=== PATIENT | male | born 1980 | race American Indian/Alaskan Native ===

== ENCOUNTER 2016-07-05 22:45 | Emergency (ER) | payer SELFPAY ==
[~2016-07-05 22:45] MED LIST: D50W (25GM) IV ONE
--- NOTE | 2016-07-05 23:27 | Emergency Department Report ---
ED General Adult HPI - General Chief complaint: Hypoglycemia Stated complaint: POSS HYPOGLYCEMIA Time Seen by Provider: 07/05/16 23:20 Source: family Mode of arrival: Wheelchair Limitations: No Limitations - History of Present Illness Initial comments: This is a 35-year-old male. He is previously known to me. He has a past medical history of diabetes. Takes novolin r Patient is brought to the hospital by family for hypoglycemia. Patient was found to have initial fingerstick of 38. He was given IV dextrose, and he was fed. His hypoglycemia has resolved. He has no headache, neck pain, chest pain, abdominal pain or shortness of breath. There is no nausea, vomiting or diarrhea. He denies irritative and obstructive urinary symptoms. He reports that he ate twice yesterday; he once in the morning, and once in the afternoon. He reports that he gave himself 20 units of of Novolin R in the morning, 15 units of Novolin R at 12 PM, and 10 units of Novolin R at 6 PM. The patient has no complaints at this time. -: Gradual Severity scale (0 -10): 0 Consistency: now resolved Improves with: medication, other (glucose) Associated Symptoms: denies other symptoms. denies: confusion, chest pain, cough, diaphoresis, fever/chills, headaches, loss of appetite, malaise, nausea/ vomiting, rash, seizure, shortness of breath, syncope, weakness - Related Data Previous Rx's Medication Instructions Recorded Last Taken Type Insulin NPH, Human [NovoLIN N] 10 unit SQ QPM #1 pen 07/06/16 Unknown Rx Insulin NPH, Human [NovoLIN N] 25 unit SQ QAM #1 pen 07/06/16 Unknown Rx Insulin Regular, Human [HumuLIN R] 10 unit SQ DAILY #1 pen 07/06/16 Unknown Rx Insulin Regular, Human [HumuLIN R] 20 unit SQ QAM #1 pen 07/06/16 Unknown Rx Allergies Allergy/AdvReac Type Severity Reaction Status Date / Time paroxetine HCl [From Paxil] Allergy Swelling Verified 05/12/14 13:41 ED Review of Systems ROS: Stated complaint: POSS HYPOGLYCEMIA Other details as noted in HPI Constitutional: denies: fever Eyes: denies: vision change ENT: denies: epistaxis Respiratory: denies: cough Cardiovascular: denies: chest pain Gastrointestinal: denies: abdominal pain Genitourinary: denies: urgency, dysuria Musculoskeletal: denies: back pain Skin: denies: lesions Neurological: weakness Psychiatric: as per HPI ED Past Medical Hx - Past Medical History Previous Medical History?: Yes Hx Diabetes: Yes Additional medical history: heart murmur - Surgical History Past Surgical History?: No - Social History Smoking Status: Unknown if ever smoked - Medications Home Medications: Home Medications Medication Instructions Recorded Confirmed Last Taken Type Insulin NPH, Human [NovoLIN N] 10 unit SQ QPM #1 pen 07/06/16 Unknown Rx Insulin NPH, Human [NovoLIN N] 25 unit SQ QAM #1 pen 07/06/16 Unknown Rx Insulin Regular, Human [HumuLIN R] 10 unit SQ DAILY #1 pen 07/06/16 Unknown Rx Insulin Regular, Human [HumuLIN R] 20 unit SQ QAM #1 pen 07/06/16 Unknown Rx ED Physical Exam - General Limitations: No Limitations General appearance: alert, in no apparent distress - Head Head exam: Present: atraumatic, normocephalic - Eye Eye exam: Present: normal appearance, EOMI. Absent: nystagmus - ENT ENT exam: Present: normal exam, normal orophraynx, mucous membranes moist, normal external ear exam - Neck Neck exam: Present: normal inspection, full ROM. Absent: tenderness, meningismus - Respiratory Respiratory exam: Present: normal lung sounds bilaterally. Absent: respiratory distress, wheezes, rales, rhonchi, stridor, decreased breath sounds - Cardiovascular Cardiovascular Exam: Present: regular rate, normal rhythm, normal heart sounds. Absent: bradycardia, tachycardia, irregular rhythm, systolic murmur, diastolic murmur, rubs, gallop - GI/Abdominal GI/Abdominal exam: Present: soft, normal bowel sounds. Absent: distended, tenderness, guarding, rebound, rigid, pulsatile mass - Rectal Rectal exam: Present: deferred - Extremities Exam Extremities exam: Present: normal inspection, full ROM, normal capillary refill. Absent: tenderness, pedal edema, joint swelling, calf tenderness - Back Exam Back exam: Present: normal inspection, full ROM. Absent: tenderness, CVA tenderness (R), CVA tenderness (L), muscle spasm, paraspinal tenderness, vertebral tenderness - Neurological Exam Neurological exam: Present: alert, oriented X3, normal gait, other (Extraocular movements intact. Tongue midline. No facial droop. Facial sensation intact to light touch in the V1, V2, V3 distribution bilaterally. 5 and 5 strength in 4 extremities.. Sensation is intact to light touch in 4 extremities.). Absent : motor sensory deficit - Psychiatric Psychiatric exam: Present: normal affect, normal mood - Skin Skin exam: Present: warm, dry, intact, normal color. Absent: rash ED Course Vital Signs 07/05/16 07/05/16 07/06/16 22:55 23:04 00:20 Temperature 98.2 F Pulse Rate 79 79 Respiratory 20 18 16 Rate Blood Pressure 133/77 124/76 [Right] O2 Sat by Pulse 100 99 Oximetry 07/06/16 01:44 Temperature Pulse Rate 72 Respiratory 16 Rate Blood Pressure 112/65 [Right] O2 Sat by Pulse 99 Oximetry - Reevaluation(s) Reevaluation #1: 07/06/16 00:43 differential diagnosis: Hypoglycemia, pneumonia, urinary tract infection, over zealous insulin administration with inadequate oral intake Assessment and plan: 35-year-old male with resolved hypoglycemia, the etiology most likely is the patient gave himself too much insulin and didn't eat enough. The patient has been observed in the ER for a prolonged period of time, his Accu -Cheks have been within normal limits, and he will be discharged to go home with a family member who can watch over him carefully. The patient was observed in the ER for a few hours without any seeming in difficult clinical decompensation. He was instructed as importance of eating a proper meal, and then administering his insulin. He will be discharged. Return precautions are reviewed. X-ray of the chest not consistent with pneumonia. Reevaluation #3: 07/06/16 02:00 the patient has been observed in the emergency department for a prolonged period of time. He was fed numerous times, and his Accu-Chek has remained stable. He is going to be discharged with refills on his prescription medications. His potassium was repleted. He will be discharged with a family member who is reliable to watch him and take care of him. ED Medical Decision Making - Lab Data Result diagrams: 07/05/16 23:00 07/05/16 23:00 Vital Signs 07/05/16 07/05/16 07/06/16 22:55 23:04 00:20 Temperature 98.2 F Pulse Rate 79 79 Respiratory 20 18 16 Rate Blood Pressure 133/77 124/76 [Right] O2 Sat by Pulse 100 99 Oximetry Lab Results 07/05/16 07/05/16 07/06/16 Range/Units 23:00 23:00 00:23 WBC 8.1 (4.5-11.0) K/mm3 RBC 5.15 H (3.65-5.03) M/mm3 Hgb 12.7 (11.8-15.2) gm/dl Hct 39.5 (35.5-45.6) % MCV 77 L (84-94) fl MCH 25 L (28-32) pg MCHC 32 (32-34) % RDW 14.5 (13.2-15.2) % Plt Count 295 (140-440) K/mm3 Lymph % (Auto) 35.9 H (13.4-35.0) % [place] % (Auto) 8.3 H (0.0-7.3) % Eos % (Auto) 1.5 (0.0-4.3) % Baso % (Auto) 0.3 (0.0-1.8) % Lymph # 2.9 (1.2-5.4) K/mm3 [place] # 0.7 (0.0-0.8) K/mm3 Eos # 0.1 (0.0-0.4) K/mm3 Baso # 0.0 (0.0-0.1) K/mm3 Add Manual Diff Complete Seg Neutrophils % 54.0 (40.0-70.0) % Nucleated RBC % Not Reportable Seg Neutrophils # 4.4 (1.8-7.7) K/mm3 WBC Morphology Not Reportable Hypersegmented Neuts Not Reportable Hyposegmented Neuts Not Reportable Hypogranular Neuts Not Reportable Smudge Cells Not Reportable Toxic Granulation Not Reportable Toxic Vacuolation Not Reportable Dohle Bodies Not Reportable Pelger-Huet Anomaly Not Reportable Rick Rods Not Reportable Platelet Estimate Not Reportable Clumped Platelets Not Reportable Plt Clumps, EDTA Not Reportable Large Platelets Not Reportable Giant Platelets Not Reportable Platelet Satelliting Not Reportable Plt Morphology Comment Not Reportable RBC Morphology Not Reportable Dimorphic RBCs Not Reportable Polychromasia Not Reportable Hypochromasia Not Reportable Poikilocytosis Not Reportable Anisocytosis Not Reportable Microcytosis Not Reportable Macrocytosis Not Reportable Spherocytes Not Reportable Pappenheimer Bodies Not Reportable Sickle Cells Not Reportable Target Cells Not Reportable Tear Drop Cells Not Reportable Ovalocytes Not Reportable Helmet Cells Not Reportable [place] Bodies Not Reportable Aiken Rings Not Reportable [place] Cells Not Reportable Bite Cells Not Reportable Crenated Cell Not Reportable Elliptocytes Not Reportable Acanthocytes (Spur) Not Reportable Rouleaux Not Reportable Hemoglobin C Crystals Not Reportable Schistocytes Not Reportable Malaria parasites Not Reportable Zack Bodies Not Reportable Sodium 139 (137-145) mmol/L Potassium 3.2 L (3.6-5.0) mmol/L Chloride 99.6 (98-107) mmol/L Carbon Dioxide 26 (22-30) mmol/L Anion Gap 17 mmol/L BUN 12 (9-20) mg/dL Creatinine 0.8 (0.8-1.5) mg/dL Estimated GFR > 60 ml/min BUN/Creatinine Ratio 15.00 % Glucose 108 H (75-100) mg/dL Calcium 9.1 (8.4-10.2) mg/dL Magnesium 2.1 (1.7-2.3) mg/dL - Radiology Data Radiology results: image reviewed interpreted by me: X-ray of the chest is negative for acute disease Critical care attestation.: If time is entered above; I have spent that time in minutes in the direct care of this critically ill patient, excluding procedure time. ED Disposition Clinical Impression: Hypoglycemia Disposition: DISCHARGED TO HOME OR SELFCARE Is pt being admited?: No Does the pt Need Aspirin: No Condition: Stable Instructions: Diabetic Hypoglycemia (ED) Additional Instructions: Continue current outpatient medications. Make certain to eat 3 full meals a day and to take insulin as needed/directed. Follow up with a primary care doctor within the next 7-[address] Sudhir Castano is a local primary care doctor. [facility] is a local medical clinic. Taking insulin and not eating adequate food can cause decreased blood sugar level, which in turn can cause paralysis, brain damage, disability, . Prescriptions: Insulin NPH, Human [NovoLIN N] 25 unit SQ QAM #1 pen Insulin NPH, Human [NovoLIN N] 10 unit SQ QPM #1 pen Insulin Regular, Human [HumuLIN R] 20 unit SQ QAM #1 pen Insulin Regular, Human [HumuLIN R] 10 unit SQ DAILY #1 pen Referrals: PRIMARY CAREMD [Primary Care Provider] - 3-5 Days SUDHIR CASTANO MD [Staff Physician] - 3-5 Days [facility] [Provider Group] - 3-5 Days
[2016-07-05 23:28] LABS: Mean Corpuscular HGB Conc 32 % (32-34); Mean Corpuscular Volume 77 fl (84-94); White Blood Count 8.1 K/mm3 (4.5-11.0)
[2016-07-05 23:37] LABS: Mean Corpuscular Hemoglobin 25 pg (28-32)
[2016-07-05 23:41] LABS: Anion Gap 17 mmol/L; Blood Urea Nitrogen 12 mg/dL (9-20); Calcium 9.1 mg/dL (8.4-10.2); Carbon Dioxide 26 mmol/L (22-30); Chloride 99.6 mmol/L (98-107); Glucose 108 mg/dL (75-100); Potassium 3.2 mmol/L (3.6-5.0); Sodium 139 mmol/L (137-145)
[2016-07-06] MEDS ORDERED: D50W (25GM) IV ONE ×2 (00:04→00:11)
[2016-07-06] MEDS ORDERED: K-DUR PO ONE (00:11)
[2016-07-06] MEDS: D50W (25GM) IV ONE ×2 (00:15→01:00)
[2016-07-06 00:20] LABS: Hematocrit 39.5 % (35.5-45.6); Hemoglobin 12.7 gm/dl (11.8-15.2); Red Blood Count 5.15 M/mm3 (3.65-5.03); Red Cell Distribution Width 14.5 % (13.2-15.2)
[2016-07-06 00:21] LABS: Basophils % (Auto) 0.3 % (0.0-1.8); Eosinophils % (Auto) 1.5 % (0.0-4.3); Mean Platelet Volume 7.8 fl (6-12); Platelet Count 295 K/mm3 (140-440)
[2016-07-06 00:22] LABS: Diff Status Complete
[2016-07-06 01:12] LABS: Bilirubin,Urine NEG (Negative); Blood,Urine NEG (Negative); Ketones,Urine TR mg/dL (Negative); Leukocyte Esterase,Urine NEG (Negative); Mucus,Urine FEW /HPF; Nitrite,Urine NEG (Negative); Protein,Urine <15 mg/dL mg/dL (Negative); WBC,Urine < 1.0 /HPF (0.0-6.0)
[2016-07-06 01:45] VITALS: BP 112/65
[2016-07-06 01:56] LABS: Basophils % (Manual) 0 % (0.0-1.8); Blastocytes % (Manual) 0 %; Hypochromasia 1+
--- NOTE | 2016-07-06 08:25 | XRay Report ---
ROUTINE CHEST, TWO VIEWS: HISTORY: Hypoglycemia, pneumonia, shortness of breath. The trachea, heart, mediastinal contour, lung nair and bony thorax are unremarkable. IMPRESSION: Unremarkable chest x-ray.
== END 2016-07-06 02:25 | disposition home or self-care (01) ==
LOC: ED 22:45
DX: E11.649 Type 2 diabetes mellitus with hypoglycemia without coma (principal); Z79.4 Long term (current) use of insulin; Z88.8 Allergy status to other drugs, medicaments and biological substances
CPT/HCPCS: 36415; 71020; 80048; 81001; 82962; 83735; 85007; 85025; 96374; 96376

== ENCOUNTER 2016-12-05 12:14 | Emergency (ER) | payer SELFPAY ==
[2016-12-05] MEDS ORDERED: NACL 0.9% 1000 ML 1,000 ML IV ONE (13:00)
[2016-12-05] MEDS ORDERED: NACL 0.9% 1000 ML 1,000 ML ONE (13:02)
[2016-12-05 13:43] VITALS: BP 114/75
[2016-12-05 14:28] LABS: Basophils % (Auto) 0.1 % (0.0-1.8); Eosinophils % (Auto) 0.5 % (0.0-4.3); Hematocrit 40.9 % (35.5-45.6); Hemoglobin 12.9 gm/dl (11.8-15.2); Mean Corpuscular HGB Conc 32 % (32-34); Mean Corpuscular Volume 76 fl (84-94); Platelet Count 311 K/mm3 (140-440); Red Blood Count 5.38 M/mm3 (3.65-5.03); Red Cell Distribution Width 15.1 % (13.2-15.2); White Blood Count 8.8 K/mm3 (4.5-11.0)
[2016-12-05 14:29] LABS: Mean Corpuscular Hemoglobin 24 pg (28-32)
[2016-12-05 14:39] LABS: Alanine Aminotransferase 17 units/L (7-56); Albumin 3.8 g/dL (3.9-5); Albumin/Globulin Ratio 1.2 %; Alkaline Phosphatase 88 units/L (35-129); Anion Gap 16 mmol/L; BUN/Creatinine Ratio 18.33; Blood Urea Nitrogen 11 mg/dL (9-20); Calcium 8.8 mg/dL (8.4-10.2); Carbon Dioxide 23 mmol/L (22-30); Chloride 100.6 mmol/L (98-107); Glucose 222 mg/dL (75-100); Potassium 3.9 mmol/L (3.6-5.0); Sodium 136 mmol/L (137-145); Total Protein 6.9 g/dL (6.3-8.2)
== END 2016-12-05 14:39 | disposition left against medical advice (07) ==
LOC: ED 12:14
DX: R03.0 Elevated blood-pressure reading, without diagnosis of hypertension (principal); Z53.21 Procedure and treatment not carried out due to patient leaving prior to being seen by health care provider
CPT/HCPCS: 36415; 80053; 82962; 83735; 85025; 96360; J7030

== ENCOUNTER 2017-04-18 09:46 | Emergency (ER) | payer SELFPAY ==
[2017-04-18 10:04] VITALS: BP 124/75
[2017-04-18 10:34] LABS: Basophils # (Auto) 0.1 K/mm3 (0.0-0.1); Basophils % (Auto) 0.6 % (0.0-1.8); Eosinophils % (Auto) 0.3 % (0.0-4.3); Hematocrit 42.5 % (35.5-45.6); Hemoglobin 13.8 gm/dl (11.8-15.2); Lymphocytes # (Auto) 0.8 K/mm3 (1.2-5.4); Lymphocytes % (Auto) 8.2 % (13.4-35.0); Mean Corpuscular HGB Conc 33 % (32-34); Mean Corpuscular Hemoglobin 25 pg (28-32); Mean Corpuscular Volume 77 fl (84-94); Monocytes # (Auto) 0.4 K/mm3 (0.0-0.8); Monocytes % (Auto) 4.4 % (0.0-7.3); Platelet Count 241 K/mm3 (140-440); Red Blood Count 5.51 M/mm3 (3.65-5.03); Red Cell Distribution Width 14.6 % (13.2-15.2)
[2017-04-18 10:55] LABS: BUN/Creatinine Ratio 13; Blood Urea Nitrogen 12 mg/dL (9-20); Calcium 9.1 mg/dL (8.4-10.2); Hemolysis Index 9
[2017-04-18 11:25] LABS: Bilirubin,Urine NEG (Negative); Blood,Urine NEG (Negative); Color,Urine Straw (Yellow); Mucus,Urine FEW /HPF; Nitrite,Urine NEG (Negative); Protein,Urine <15 mg/dL mg/dL (Negative); Urobilinogen,Urine < 2.0 mg/dL (<2.0)
[2017-04-18 11:33] LABS: WBC,Urine < 1.0 /HPF (0.0-6.0)
== END 2017-04-18 17:10 | disposition left against medical advice (07) ==
LOC: ED 09:46
DX: Z53.21 Procedure and treatment not carried out due to patient leaving prior to being seen by health care provider (principal)
CPT/HCPCS: 36415; 80048; 81001; 82803; 82962; 85025

== ENCOUNTER 2017-09-13 14:15 | Inpatient (IN) | payer SELFPAY ==
[2017-09-13 15:22] LABS: Basophils % (Auto) 0.2 % (0.0-1.8); Eosinophils # (Auto) 0.1 K/mm3 (0.0-0.4); Hematocrit 40.9 % (35.5-45.6); Hemoglobin 13.1 gm/dl (11.8-15.2); Lymphocytes # (Auto) 1.3 K/mm3 (1.2-5.4); Lymphocytes % (Auto) 13.5 % (13.4-35.0); Mean Corpuscular HGB Conc 32 % (32-34); Mean Corpuscular Hemoglobin 25 pg (28-32); Mean Corpuscular Volume 78 fl (84-94); Monocytes # (Auto) 0.9 K/mm3 (0.0-0.8); Monocytes % (Auto) 9.2 % (0.0-7.3); Platelet Count 302 K/mm3 (140-440); Red Blood Count 5.24 M/mm3 (3.65-5.03); Red Cell Distribution Width 15.2 % (13.2-15.2)
[2017-09-13 15:28] LABS: Bilirubin,Urine NEG (Negative); Blood,Urine NEG (Negative); Color,Urine Yellow (Yellow); Mucus,Urine FEW /HPF; Protein,Urine <15 mg/dL mg/dL (Negative); Urobilinogen,Urine < 2.0 mg/dL (<2.0)
[2017-09-13 15:28] LABS: BUN/Creatinine Ratio 10; Blood Urea Nitrogen 8 mg/dL (9-20); Calcium 9.2 mg/dL (8.4-10.2); Hemolysis Index 6
--- NOTE | 2017-09-13 15:35 | Emergency Department Report ---
ED General Adult HPI - General Chief complaint: Hypoglycemia Stated complaint: LOW BLOOD SUGAR Time Seen by Provider: 09/13/17 15:34 Source: patient, EMS Mode of arrival: Stretcher Limitations: No Limitations - History of Present Illness Initial comments: Patient condition unremarkable falls and low blood sugar at home. He said he is unable to afford his insulin due to lack of finance.. -: Sudden Location: upper extremity Radiation: non-radiation Severity scale (0 -10): 4 Quality: sharp Consistency: constant Improves with: rest Worsens with: movement Associated Symptoms: denies other symptoms Treatments Prior to Arrival: none - Related Data Previous Rx's Medication Instructions Recorded Last Taken Type Insulin NPH, Human [NovoLIN N] 10 unit SQ QPM #1 pen 07/06/16 Unknown Rx Insulin NPH, Human [NovoLIN N] 25 unit SQ QAM #1 pen 07/06/16 Unknown Rx Insulin Regular, Human [HumuLIN R] 10 unit SQ DAILY #1 pen 07/06/16 Unknown Rx Insulin Regular, Human [HumuLIN R] 20 unit SQ QAM #1 pen 07/06/16 Unknown Rx Allergies Allergy/AdvReac Type Severity Reaction Status Date / Time paroxetine HCl [From Paxil] Allergy Swelling Verified 05/12/14 13:41 ED Review of Systems ROS: Stated complaint: LOW BLOOD SUGAR Other details as noted in HPI Comment: All other systems reviewed and negative Constitutional: denies: chills, fever Eyes: denies: eye pain ENT: denies: ear pain Respiratory: denies: cough, shortness of breath Cardiovascular: denies: chest pain, palpitations, edema Endocrine: increased hunger Gastrointestinal: denies: abdominal pain, nausea, vomiting, diarrhea Genitourinary: denies: urgency, dysuria, frequency Musculoskeletal: joint swelling, other (Right wrist pain). denies: back pain Skin: denies: rash, change in color Neurological: denies: headache, weakness, numbness Psychiatric: denies: anxiety, depression Hematological/Lymphatic: denies: easy bleeding, easy bruising ED Past Medical Hx - Past Medical History Hx Diabetes: Yes Additional medical history: heart murmur - Surgical History Past Surgical History?: No - Social History Smoking Status: Current Some Day Smoker Substance Use Type: Marijuana - Medications Home Medications: Home Medications Medication Instructions Recorded Confirmed Last Taken Type Insulin NPH, Human [NovoLIN N] 10 unit SQ QPM #1 pen 07/06/16 Unknown Rx Insulin NPH, Human [NovoLIN N] 25 unit SQ QAM #1 pen 07/06/16 Unknown Rx Insulin Regular, Human [HumuLIN R] 10 unit SQ DAILY #1 pen 07/06/16 Unknown Rx Insulin Regular, Human [HumuLIN R] 20 unit SQ QAM #1 pen 07/06/16 Unknown Rx ED Physical Exam - General Limitations: No Limitations General appearance: alert, in no apparent distress - Head Head exam: Present: atraumatic, normocephalic, normal inspection - Eye Eye exam: Present: normal appearance, PERRL, EOMI Pupils: Present: normal accommodation - ENT ENT exam: Present: normal exam, normal orophraynx, mucous membranes moist - Neck Neck exam: Present: normal inspection, full ROM. Absent: tenderness - Respiratory Respiratory exam: Present: normal lung sounds bilaterally. Absent: respiratory distress, wheezes, rales, rhonchi - Cardiovascular Cardiovascular Exam: Present: regular rate, normal rhythm, normal heart sounds - GI/Abdominal GI/Abdominal exam: Present: soft, normal bowel sounds. Absent: distended, tenderness, guarding, rebound - Extremities Exam Extremities exam: Present: normal inspection, full ROM, normal capillary refill - Back Exam Back exam: Present: normal inspection, full ROM - Neurological Exam Neurological exam: Present: alert, oriented X3, CN II-XII intact - Psychiatric Psychiatric exam: Present: normal affect, normal mood - Skin Skin exam: Present: warm, dry, intact, normal color ED Course Vital Signs 09/13/17 09/13/17 14:41 16:49 Temperature 98 F Pulse Rate 76 75 Respiratory 18 18 Rate Blood Pressure 118/68 Blood Pressure 127/66 [Right] O2 Sat by Pulse 100 99 Oximetry - Reevaluation(s) Reevaluation #1: 09/13/17 17:02 I discussed with him with the hospitalist on-call Dr Muñoz. We will admit patient to the hospital for further observation and management. ED Medical Decision Making - Lab Data Result diagrams: 09/13/17 Unknown 09/13/17 Unknown Critical care attestation.: If time is entered above; I have spent that time in minutes in the direct care of this critically ill patient, excluding procedure time. ED Disposition Clinical Impression: Hypoglycemia due to type 1 diabetes mellitus Disposition: DC-09 OP ADMIT IP TO THIS HOSP Is pt being admited?: Yes Does the pt Need Aspirin: No Condition: Stable Instructions: Diabetes Mellitus Type 2 in Adults (ED) Referrals: PRIMARY CARE, [Primary Care Provider] - 3-5 Days Time of Disposition: 17:03
[2017-09-13] MEDS ORDERED: NACL 0.9% 1000 ML 1,000 ML IV ONE (15:57)
[2017-09-13 16:50] VITALS: BP 127/66
[2017-09-13] MEDS ORDERED: D50W (25GM) Syringe IV ONE ×3 (16:55→18:17)
[2017-09-13] MEDS ORDERED: NACL 0.9% 1000 ML 1,000 ML ONE (17:49)
[2017-09-13] MEDS ORDERED: D5NS 0.2% 1,000 ML IV ONE (17:52)
[2017-09-13] MEDS ORDERED: D5NS 1,000 ML IV SCH (18:00)
--- NOTE | 2017-09-13 18:27 | XRay Report ---
FINAL REPORT PROCEDURE: XR WRIST 3+V RT TECHNIQUE: RIGHT wrist radiographs, including AP, lateral, and oblique views. CPT 44514 HISTORY: Right wrist pain after fall. COMPARISON: No prior studies are available for comparison. FINDINGS: Fracture (s) and/or Dislocation(s): None . Alignment: Normal . Joint space(s): Normal . Soft tissues: Normal . Bone mineralization: Normal . Foreign bodies: None . IMPRESSION: No radiographic evidence of displaced fracture.
[2017-09-13] MEDS ORDERED: D50W (25GM) Syringe IV SCH ×2 (19:00)
[2017-09-13] MEDS ORDERED: GLUCAGEN IV ONE (19:30)
--- NOTE | 2017-09-13 20:01 | Event Note ---
Date: 09/13/17 Hypoglycemia corrected Patient is very knowledgable about his IDDM Discussed Basal Bolus regimen and Novolin 70 /30 35 units BID Patient to follow up with [facility] clinic. Patient stable and discharged
== END 2017-09-13 23:16 | disposition home or self-care (01) | DRG 639 ==
LOC: ED 14:15 → 4A 17:04
PROVIDERS: ADMIT Internal Medicine; ATTEND Internal Medicine
DX: E10.649 Type 1 diabetes mellitus with hypoglycemia without coma (principal); F17.200 Nicotine dependence, unspecified, uncomplicated; F12.90 Cannabis use, unspecified, uncomplicated
CPT/HCPCS: 36415; 80048; 81001; 82947; 82962; 85025; 96374; 96375; 96376; J1610; J7030

== ENCOUNTER 2017-10-03 16:49 | Emergency (ER) | payer SELFPAY ==
[2017-10-03 17:15] VITALS: BP 116/62
[2017-10-03 17:40] LABS: BUN/Creatinine Ratio 11; Blood Urea Nitrogen 8 mg/dL (9-20); Calcium 9.1 mg/dL (8.4-10.2); Hemolysis Index 6
[2017-10-03 17:42] LABS: Basophils % (Auto) 0.4 % (0.0-1.8); Eosinophils % (Auto) 0.4 % (0.0-4.3); Hematocrit 40.1 % (35.5-45.6); Hemoglobin 12.8 gm/dl (11.8-15.2); Lymphocytes # (Auto) 1.1 K/mm3 (1.2-5.4); Lymphocytes % (Auto) 12.5 % (13.4-35.0); Mean Corpuscular HGB Conc 32 % (32-34); Mean Corpuscular Volume 77 fl (84-94); Monocytes # (Auto) 0.5 K/mm3 (0.0-0.8); Monocytes % (Auto) 5.8 % (0.0-7.3); Platelet Count 286 K/mm3 (140-440); Red Blood Count 5.21 M/mm3 (3.65-5.03)
[2017-10-03 17:47] LABS: Mean Corpuscular Hemoglobin 25 pg (28-32)
[2017-10-03 19:07] LABS: Bilirubin,Urine NEG (Negative); Blood,Urine NEG (Negative); Color,Urine Yellow (Yellow); Protein,Urine <15 mg/dL mg/dL (Negative); RBC,Urine < 1.0 /HPF (0.0-6.0); Urobilinogen,Urine < 2.0 mg/dL (<2.0); WBC,Urine < 1.0 /HPF (0.0-6.0)
--- NOTE | 2017-10-03 21:12 | Emergency Department Report ---
ED General Adult HPI - General Chief complaint: Hypoglycemia Stated complaint: LOW BLOOD SUGAR Time Seen by Provider: 10/03/17 19:14 Source: patient, EMS Mode of arrival: Stretcher Limitations: No Limitations - History of Present Illness Initial comments: Patient woke up this morning and his glucose was high approximate 400. He gave himself 12 units of [id number] regular insulin/NPH. This was at noon. He went to a later that day. Patient started to feel lightheaded and weak. He checked his sugar2. He started vomiting. EMS was called. They gave him half an amp of D50 and brought him to the ER for evaluation. Patient does not have a primary care doctor or insulation blanket maker. He has been by his insulin [id number] from [employer]. He says he used to give himself anywhere from 10 -20 units of insulin. He had a hypoglycemic episode on 09/13/17. Severity scale (0 -10): 0 - Related Data Previous Rx's Medication Instructions Recorded Last Taken Type Insulin NPH, Human [NovoLIN N] 10 unit SQ QPM #1 pen 07/06/16 Unknown Rx Insulin NPH, Human [NovoLIN N] 25 unit SQ QAM #1 pen 07/06/16 Unknown Rx Insulin Regular, Human [HumuLIN R] 10 unit SQ DAILY #1 pen 07/06/16 Unknown Rx Insulin Regular, Human [HumuLIN R] 20 unit SQ QAM #1 pen 07/06/16 Unknown Rx Allergies Allergy/AdvReac Type Severity Reaction Status Date / Time paroxetine HCl [From Paxil] Allergy Swelling Verified 05/12/14 13:41 ED Review of Systems ROS: Stated complaint: LOW BLOOD SUGAR Other details as noted in HPI Comment: All other systems reviewed and negative Constitutional: weakness Gastrointestinal: nausea, vomiting ED Past Medical Hx - Past Medical History Previous Medical History?: Yes Hx Diabetes: Yes Additional medical history: heart murmur - Surgical History Past Surgical History?: No - Social History Smoking Status: Current Every Day Smoker Substance Use Type: Alcohol, Marijuana - Medications Home Medications: Home Medications Medication Instructions Recorded Confirmed Last Taken Type Insulin NPH, Human [NovoLIN N] 10 unit SQ QPM #1 pen 07/06/16 Unknown Rx Insulin NPH, Human [NovoLIN N] 25 unit SQ QAM #1 pen 07/06/16 Unknown Rx Insulin Regular, Human [HumuLIN R] 10 unit SQ DAILY #1 pen 07/06/16 Unknown Rx Insulin Regular, Human [HumuLIN R] 20 unit SQ QAM #1 pen 07/06/16 Unknown Rx ED Physical Exam - General Limitations: No Limitations General appearance: alert, in no apparent distress - Head Head exam: Present: atraumatic, normocephalic - Eye Eye exam: Present: normal appearance - ENT ENT exam: Present: mucous membranes moist - Neck Neck exam: Present: normal inspection - Respiratory Respiratory exam: Present: normal lung sounds bilaterally. Absent: respiratory distress - Cardiovascular Cardiovascular Exam: Present: regular rate, normal rhythm. Absent: systolic murmur, diastolic murmur, rubs, gallop - GI/Abdominal GI/Abdominal exam: Present: soft, normal bowel sounds. Absent: tenderness - Rectal Rectal exam: Present: deferred - Extremities Exam Extremities exam: Present: normal inspection - Back Exam Back exam: Present: normal inspection - Neurological Exam Neurological exam: Present: alert, oriented X3 - Psychiatric Psychiatric exam: Present: normal affect, normal mood - Skin Skin exam: Present: warm, dry, intact, normal color. Absent: rash ED Course Vital Signs 10/03/17 10/03/17 17:13 19:37 Temperature 98.7 F Pulse Rate 73 Respiratory 16 16 Rate Blood Pressure 116/62 [Right] O2 Sat by Pulse 99 Oximetry ED Medical Decision Making - Lab Data Result diagrams: 10/03/17 17:06 10/03/17 17:06 - Medical Decision Making 37-year-old male with past medical history of type 1 diabetes that presents to the ER with hypoglycemia. His glucose on arrival was 110. He was given Ceftin and his glucoses stayed above 100 while in the ER. I will refer the patient to the [facility] to try to get plugged in for management of his diabetes. I told the patient that is better for him to ride high then for him to try to stay strictly controlled, especially since he is estimating of the TOP of his head the amount of insulin needs. - Differential Diagnosis medication reaction Critical care attestation.: If time is entered above; I have spent that time in minutes in the direct care of this critically ill patient, excluding procedure time. ED Disposition Clinical Impression: Hypoglycemia Disposition: DC-01 TO HOME OR SELFCARE Is pt being admited?: No Does the pt Need Aspirin: No Condition: Stable Instructions: Diabetic Hypoglycemia (ED) Additional Instructions: Please follow up with the [facility] clinic for management of your diabetes. Referrals: [facility] [Outside] - 3-5 Days
== END 2017-10-03 21:25 | disposition home or self-care (01) ==
LOC: ED 16:49
DX: E11.649 Type 2 diabetes mellitus with hypoglycemia without coma (principal); F17.200 Nicotine dependence, unspecified, uncomplicated; F12.10 Cannabis abuse, uncomplicated; Z79.4 Long term (current) use of insulin; Z88.8 Allergy status to other drugs, medicaments and biological substances
CPT/HCPCS: 36415; 80048; 81001; 82962; 85025; 99284

== ENCOUNTER 2017-12-21 23:18 | Emergency (ER) | payer SELFPAY ==
[2017-12-22] MEDS ORDERED: CLEOCIN PO ONE (05:16)
[2017-12-22] MEDS ORDERED: XYLOCAINE 1% MPF 5 mL INFILTRATI ONE (05:16)
[2017-12-22] MEDS ORDERED: MOTRIN PO ONE (05:16)
--- NOTE | 2017-12-22 05:20 | Emergency Department Report ---
Abscess Boil HPI - HPI Chief Complaint: Skin/Abscess/Foreign Body Stated Complaint: LEFT ARM PAIN Time Seen by Provider: 12/22/17 04:34 Duration: 4 Days Location: Upper Extremity (left forearm) Severity: Severe (8/10) History: Yes Fever (patient reports chills.), Yes Pain (throbbing and achy pain left forearm), Yes Insect Bite (report possible spider bite), No Purulent Drainage, No Numbness, No Foreign Body, No Previous History HPI: This is a 37-year-old male patient presents to emergency room with left arm pain that started 4 days ago. Patient said he took the ambulance and went to [facility] for this when it was a small bump in a put him in the hallway and put a small hole in the abscess and sent him home. Patient said is a diabetic and his blood sugar is stable and he takes his insulin 4 times a day. He said he took it last night and it is due again at 9 AM. Patient reports the usually drinks a lot of water but he does not primary care doctor and he usually goes to [facility]. He takes regular insulin and NPH insulin. Denies any nausea or vomiting. Pain to left arm is 8 out of 10 and says that area of possible spider bite is getting bigger, more painful and red. He said the small old at the place that a [facility] closed. He said these been putting cold compresses on arm because this will lead to do. Denies any numbness or tingling to extremities. Denies any dizziness. Pain is worse with touch and movement and better with rest. He said he did not take any medication prior to coming to the emergency room and did did not put him on. Home Medications: Previous Rx's Medication Instructions Recorded Last Taken Type Insulin NPH, Human [NovoLIN N] 10 unit SQ QPM #1 pen 07/06/16 Unknown Rx Insulin NPH, Human [NovoLIN N] 25 unit SQ QAM #1 pen 07/06/16 Unknown Rx Insulin Regular, Human [HumuLIN R] 10 unit SQ DAILY #1 pen 07/06/16 Unknown Rx Insulin Regular, Human [HumuLIN R] 20 unit SQ QAM #1 pen 07/06/16 Unknown Rx Ibuprofen [Motrin] 800 mg PO Q8HR PRN #15 tablet 12/22/17 Unknown Rx Sulfamethoxazole/Trimethoprim 1 each PO BID 10 Days #20 tablet 12/22/17 Unknown Rx [Bactrim DS TAB] Allergies/Adverse Reactions: Allergies Allergy/AdvReac Type Severity Reaction Status Date / Time paroxetine HCl [From Paxil] Allergy Swelling Verified 05/12/14 13:41 ED Review of Systems ROS: Stated complaint: LEFT ARM PAIN Other details as noted in HPI Constitutional: fever. denies: chills Eyes: denies: eye pain, eye discharge, vision change ENT: denies: ear pain, throat pain, congestion Respiratory: denies: cough, shortness of breath, SOB with exertion, SOB at rest , stridor, wheezing Cardiovascular: denies: chest pain, palpitations, edema, syncope Gastrointestinal: denies: nausea, vomiting Musculoskeletal: arthralgia. denies: back pain, joint swelling, myalgia Skin: other (abscess to left forearm). denies: rash, lesions ED Past Medical Hx - Past Medical History Previous Medical History?: Yes Hx Diabetes: Yes Additional medical history: heart murmur - Surgical History Past Surgical History?: No - Family History Family history: hypertension - Social History Smoking Status: Current Some Day Smoker Substance Use Type: Marijuana - Medications Home Medications: Home Medications Medication Instructions Recorded Confirmed Last Taken Type Insulin NPH, Human [NovoLIN N] 10 unit SQ QPM #1 pen 07/06/16 Unknown Rx Insulin NPH, Human [NovoLIN N] 25 unit SQ QAM #1 pen 07/06/16 Unknown Rx Insulin Regular, Human [HumuLIN R] 10 unit SQ DAILY #1 pen 07/06/16 Unknown Rx Insulin Regular, Human [HumuLIN R] 20 unit SQ QAM #1 pen 07/06/16 Unknown Rx Ibuprofen [Motrin] 800 mg PO Q8HR PRN #15 tablet 12/22/17 Unknown Rx Sulfamethoxazole/Trimethoprim 1 each PO BID 10 Days #20 tablet 12/22/17 Unknown Rx [Bactrim DS TAB] ED Abscess Boil Physical Exam - Exam General: Vital signs noted. No distress. Alert and acting appropriately. This is a 37-year-old male well-nourished well-developed in no acute distress. Front/Back of Body, Lg (Color): 1 - Patient has 3 cm indurated area with minimal fluctuant to left forearm. Tender to palpate with small white area to Center. Mostly indurated with very minimal fluctuance. Surrounding cellulitis noted. Size: 3 cm Exam: Yes Tenderness (left forearm), Yes Fluctuance (minimal fluctuance left forearm), Yes Surrounding Cellulites/Erythema (left forearm), Yes Normal Neurologic Exam (alert and oriented 3, normal gait and normal reflexes ), Yes Normal Circulation (No cce. + 2 pulses in all extremities, no neurovascular compromise except for left forearm with 3 cm abscess with cellulitis.), No Lymphangitis, No Crepitation, No Heart Murmur I & D Note - I & D Note I & D Note: Incision and drainage of abscess: ED Course Vital Signs 12/22/17 12/22/17 00:12 03:04 Temperature 99.2 F 98.3 F Pulse Rate 96 H 70 Respiratory 17 18 Rate Blood Pressure 160/62 Blood Pressure 118/69 [Left] O2 Sat by Pulse 99 100 Oximetry - Reevaluation(s) Reevaluation #1: 12/22/17 08:45 Patient given clindamycin 600 mg when necessary emergency room for abscess cellulitis and Motrin 800 mg by mouth for pain. Tetanus shot is up-to-date per patient. Pain is better. See procedure note for incision and drainage Critical care attestation.: If time is entered above; I have spent that time in minutes in the direct care of this critically ill patient, excluding procedure time. ED Medical Decision Making - Medical Decision Making Patient with abscess and cellulitis of forearm. This is incision and draining emergency room. Please refer to procedure note for details. Patient was given clindamycin 600 milligrams by mouth for abscess and cellulitis, Motrin 800 mg by mouth for pain and tetanus vaccine was updated with 0.5 mL of Boostrix. He was discharged home in stable condition with his family member to follow-up in 4 days for removal of packing in. Vital signs are stable and his pains control. Discharged home with prescription for Bactrim and Motrin. ED Disposition Clinical Impression: Encounter for incision and drainage procedure, Cellulitis of left forearm, Abscess of left forearm, Arthralgia of left forearm Disposition: TO HOME OR SELFCARE Is pt being admited?: No Does the pt Need Aspirin: No Condition: Stable Instructions: Cellulitis (ED), Abscess Incision and Drainage (ED) Additional Instructions: Please return to emergency room in 4 days to have packing removed from left forearm shunt Apply apply warm compresses to left forearm 3-4 times a day to help to soften cellulitic area. take Motrin as prescribed for fever and pain Take Bactrim DS as instructed for infection If area of cellulitis worsens, increase in pain and increase in swelling please return to the emergency room [facility] Please keep pack in and place to area that was incision and drained until you are seen in 4 days. Prescriptions: Ibuprofen [Motrin] 800 mg PO Q8HR PRN #15 tablet PRN Reason: pain Sulfamethoxazole/Trimethoprim [Bactrim DS TAB] 1 each PO BID 10 Days #20 tablet Referrals: [facility] [Outside] - 12/25/17 Forms: Accompanied Note, Work/School Release Form(ED)
[2017-12-22 06:02] VITALS: BP 127/85
== END 2017-12-22 08:50 | disposition home or self-care (01) ==
LOC: ED 23:18
DX: L02.414 Cutaneous abscess of left upper limb (principal); L03.114 Cellulitis of left upper limb; E11.9 Type 2 diabetes mellitus without complications; F17.200 Nicotine dependence, unspecified, uncomplicated; F12.10 Cannabis abuse, uncomplicated; Z79.4 Long term (current) use of insulin; Z88.1 Allergy status to other antibiotic agents
CPT/HCPCS: 99282

== ENCOUNTER 2017-12-22 21:03 | Emergency (ER) | payer SELFPAY ==
--- NOTE | 2017-12-22 22:25 | XRay Report ---
FINAL REPORT PROCEDURE: XR CHEST 1V AP TECHNIQUE: Chest radiograph anteroposterior view. CPT 61956 HISTORY: possible Sepsis COMPARISON: No prior studies are available for comparison. FINDINGS: Heart: Normal. Mediastinum/Vessels: Normal. Lungs/Pleural space: Normal. Bony thorax: No acute osseous abnormality. Life support devices: None. IMPRESSION: No acute cardiopulmonary abnormality.
[2017-12-22 22:51] LABS: Basophils % (Auto) 0.5 % (0.0-1.8); Eosinophils # (Auto) 0.2 K/mm3 (0.0-0.4); Eosinophils % (Auto) 1.8 % (0.0-4.3); Hematocrit 40.1 % (35.5-45.6); Lymphocytes # (Auto) 1.3 K/mm3 (1.2-5.4); Lymphocytes % (Auto) 14.6 % (13.4-35.0); Mean Corpuscular HGB Conc 32 % (32-34); Mean Corpuscular Volume 78 fl (84-94); Monocytes # (Auto) 0.8 K/mm3 (0.0-0.8); Monocytes % (Auto) 8.8 % (0.0-7.3); Platelet Count 269 K/mm3 (140-440); Red Blood Count 5.12 M/mm3 (3.65-5.03); Red Cell Distribution Width 14.5 % (13.2-15.2)
[2017-12-22 22:57] LABS: INR 0.92 (0.87-1.13)
[2017-12-22 23:02] LABS: Bilirubin,Urine NEG (Negative); Blood,Urine NEG (Negative); Color,Urine Yellow (Yellow); Mucus,Urine FEW /HPF; Protein,Urine <15 mg/dL mg/dL (Negative); WBC,Urine < 1.0 /HPF (0.0-6.0)
[2017-12-22 23:03] LABS: Mean Corpuscular Hemoglobin 25 pg (28-32)
[2017-12-22 23:05] LABS: Alanine Aminotransferase 14 units/L (7-56); Albumin 4.2 g/dL (3.9-5); BUN/Creatinine Ratio 13; Blood Urea Nitrogen 10 mg/dL (9-20); Calcium 9.1 mg/dL (8.4-10.2); Hemolysis Index 1
[2017-12-23] MEDS ORDERED: NACL 0.9% 1000 ML IV ONE (02:13)
[2017-12-23] MEDS ORDERED: SUBLIMAZE IV ONE (02:15)
--- NOTE | 2017-12-23 02:18 | Emergency Department Report ---
ED General Adult HPI - General Chief complaint: Skin/Abscess/Foreign Body Stated complaint: HAND SWOLLEN FROM PREVIOUS TREATMENT Time Seen by Provider: 12/23/17 02:03 Source: patient, RN notes reviewed, old records reviewed Mode of arrival: Ambulatory Limitations: Physical Limitation - History of Present Illness Initial comments: This is a 37-year-old gentleman, right-hand dominant, with a past medical history of diabetes. He presents to the ER with a complaint of left hand pain and swelling. Patient reports being seen at another hospital a few days ago, had an IV placed in his left upper extremity. They have gotten swollen after that, he is not certain. He presented within the past 2 days to this emergency room for abscess to the left upper extremity, which received incision and drainage and patient was discharged with appropriate outpatient antibiotics. He presents to the ER today with fever, tachycardia, worsening hand pain and swelling. Patient endorses generalized malaise. His pain is in the proximal left forearm and goes all the way down to the hand. Patient endorses generalized malaise and fatigue. The pain increases with palpation and decreases with rest as well as IV pain medication. -: Gradual Location: left, upper extremity Radiation: extremity Quality: aching Consistency: intermittent Improves with: medication, rest Worsens with: movement Associated Symptoms: fever/chills, loss of appetite, malaise, rash, weakness. denies: confusion, chest pain, cough, diaphoresis, headaches, nausea/vomiting, seizure, shortness of breath, syncope - Related Data Previous Rx's Medication Instructions Recorded Last Taken Type Insulin NPH, Human [NovoLIN N] 10 unit SQ QPM #1 pen 07/06/16 Unknown Rx Insulin NPH, Human [NovoLIN N] 25 unit SQ QAM #1 pen 07/06/16 Unknown Rx Insulin Regular, Human [HumuLIN R] 10 unit SQ DAILY #1 pen 07/06/16 Unknown Rx Insulin Regular, Human [HumuLIN R] 20 unit SQ QAM #1 pen 07/06/16 Unknown Rx Ibuprofen [Motrin] 800 mg PO Q8HR PRN #15 tablet 12/22/17 Unknown Rx Sulfamethoxazole/Trimethoprim 1 each PO BID 10 Days #20 tablet 12/22/17 Unknown Rx [Bactrim DS TAB] Allergies Allergy/AdvReac Type Severity Reaction Status Date / Time paroxetine HCl [From Paxil] Allergy Swelling Verified 05/12/14 13:41 ED Review of Systems ROS: Stated complaint: HAND SWOLLEN FROM PREVIOUS TREATMENT Other details as noted in HPI Comment: All other systems reviewed and negative ED Past Medical Hx - Past Medical History Previous Medical History?: Yes Hx Diabetes: Yes Additional medical history: heart murmur - Surgical History Past Surgical History?: No - Social History Smoking Status: Current Every Day Smoker Substance Use Type: Alcohol, Marijuana - Medications Home Medications: Home Medications Medication Instructions Recorded Confirmed Last Taken Type Insulin NPH, Human [NovoLIN N] 10 unit SQ QPM #1 pen 07/06/16 Unknown Rx Insulin NPH, Human [NovoLIN N] 25 unit SQ QAM #1 pen 07/06/16 Unknown Rx Insulin Regular, Human [HumuLIN R] 10 unit SQ DAILY #1 pen 07/06/16 Unknown Rx Insulin Regular, Human [HumuLIN R] 20 unit SQ QAM #1 pen 07/06/16 Unknown Rx Ibuprofen [Motrin] 800 mg PO Q8HR PRN #15 tablet 12/22/17 Unknown Rx Sulfamethoxazole/Trimethoprim 1 each PO BID 10 Days #20 tablet 12/22/17 Unknown Rx [Bactrim DS TAB] ED Physical Exam - General Limitations: Physical Limitation General appearance: alert, in no apparent distress - Head Head exam: Present: atraumatic, normocephalic - Eye Eye exam: Present: normal appearance, EOMI. Absent: nystagmus - ENT ENT exam: Present: normal exam, normal orophraynx, mucous membranes moist, normal external ear exam - Neck Neck exam: Present: normal inspection, full ROM. Absent: tenderness, meningismus - Respiratory Respiratory exam: Present: normal lung sounds bilaterally. Absent: respiratory distress - Cardiovascular Cardiovascular Exam: Present: normal rhythm, tachycardia, normal heart sounds. Absent: systolic murmur, diastolic murmur, rubs, gallop - GI/Abdominal GI/Abdominal exam: Present: soft. Absent: distended, tenderness, guarding, rebound, rigid, pulsatile mass - Rectal Rectal exam: Present: deferred - Extremities Exam Extremities exam: Present: tenderness (the left forearm and hand are swollen and tender. Compartments are somewhat tense and tender. There is a distal lateral/radial sided abscess with packing noted. Thumb opposition is intact, and wrist extension and flexion are intact.), other (patient has 2+ pulses in the bilateral upper, lower extremities). Absent: normal inspection, pedal edema , joint swelling, calf tenderness - Back Exam Back exam: Present: normal inspection, full ROM. Absent: tenderness, CVA tenderness (R), paraspinal tenderness, vertebral tenderness - Neurological Exam Neurological exam: Present: alert, oriented X3, CN II-XII intact, other ( Extraocular movements intact. Tongue midline. No facial droop. Facial sensation intact to light touch in the V1, V2, V3 distribution bilaterally. 5 and 5 strength in 4 extremities.. Sensation is intact to light touch in 4 extremities.). Absent: motor sensory deficit - Psychiatric Psychiatric exam: Present: anxious - Skin Skin exam: Present: warm, rash, erythema ED Course Vital Signs 12/23/17 03:01 Temperature 98.6 F Pulse Rate 76 Respiratory 17 Rate Blood Pressure 132/68 [Left] O2 Sat by Pulse 95 Oximetry ED Medical Decision Making - Lab Data Result diagrams: 12/22/17 22:30 12/22/17 22:30 Vital Signs 12/23/17 03:01 Temperature 98.6 F Pulse Rate 76 Respiratory 17 Rate Blood Pressure 132/68 [Left] O2 Sat by Pulse 95 Oximetry Lab Results 12/22/17 12/22/17 12/22/17 Range/Units 22:30 22:30 22:30 WBC 9.1 (4.5-11.0) K/mm3 RBC 5.12 H (3.65-5.03) M/mm3 Hgb 13.0 (11.8-15.2) gm/dl Hct 40.1 (35.5-45.6) % MCV 78 L (84-94) fl MCH 25 L (28-32) pg MCHC 32 (32-34) % RDW 14.5 (13.2-15.2) % Plt Count 269 (140-440) K/mm3 Lymph % (Auto) 14.6 (13.4-35.0) % Richardson % (Auto) 8.8 H (0.0-7.3) % Eos % (Auto) 1.8 (0.0-4.3) % Baso % (Auto) 0.5 (0.0-1.8) % Lymph # 1.3 (1.2-5.4) K/mm3 Richardson # 0.8 (0.0-0.8) K/mm3 Eos # 0.2 (0.0-0.4) K/mm3 Baso # 0.0 (0.0-0.1) K/mm3 Seg Neutrophils % 74.3 H (40.0-70.0) % Seg Neutrophils # 6.8 (1.8-7.7) K/mm3 PT 12.8 (12.2-14.9) Sec. INR 0.92 (0.87-1.13) VBG pH (7.320-7.420) Sodium 138 (137-145) mmol/L Potassium 3.7 (3.6-5.0) mmol/L Chloride 102.5 (98-107) mmol/L Carbon Dioxide 24 (22-30) mmol/L Anion Gap 15 mmol/L BUN 10 (9-20) mg/dL Creatinine 0.8 (0.8-1.5) mg/dL Estimated GFR > 60 ml/min BUN/Creatinine Ratio 13 % Glucose 72 L (75-100) mg/dL Lactic Acid (0.7-2.0) mmol/L Calcium 9.1 (8.4-10.2) mg/dL Total Bilirubin 0.30 (0.1-1.2) mg/dL AST 21 (5-40) units/L ALT 14 (7-56) units/L Alkaline Phosphatase 108 (35-129) units/L Total Creatine Kinase (55-170) units/L Total Protein 7.4 (6.3-8.2) g/dL Albumin 4.2 (3.9-5) g/dL Albumin/Globulin Ratio 1.3 % Urine Color (Yellow) Urine Turbidity (Clear) Urine pH (5.0-7.0) Ur Specific Casey (1.003-1.030) Urine Protein (Negative) mg/dL Urine Glucose (UA) (Negative) mg/dL Urine Ketones (Negative) mg/dL Urine Blood (Negative) Urine Nitrite (Negative) Urine Bilirubin (Negative) Urine Urobilinogen (<2.0) mg/dL Ur Leukocyte Esterase (Negative) Urine WBC (Auto) (0.0-6.0) /HPF Urine RBC (Auto) (0.0-6.0) /HPF Urine Mucus /HPF 12/22/17 12/22/17 12/22/17 Range/Units 22:30 22:30 Unknown WBC (4.5-11.0) K/mm3 RBC (3.65-5.03) M/mm3 Hgb (11.8-15.2) gm/dl Hct (35.5-45.6) % MCV (84-94) fl MCH (28-32) pg MCHC (32-34) % RDW (13.2-15.2) % Plt Count (140-440) K/mm3 Lymph % (Auto) (13.4-35.0) % Richardson % (Auto) (0.0-7.3) % Eos % (Auto) (0.0-4.3) % Baso % (Auto) (0.0-1.8) % Lymph # (1.2-5.4) K/mm3 Richardson # (0.0-0.8) K/mm3 Eos # (0.0-0.4) K/mm3 Baso # (0.0-0.1) K/mm3 Seg Neutrophils % (40.0-70.0) % Seg Neutrophils # (1.8-7.7) K/mm3 PT (12.2-14.9) Sec. INR (0.87-1.13) VBG pH 7.382 (7.320-7.420) Sodium (137-145) mmol/L Potassium (3.6-5.0) mmol/L Chloride (98-107) mmol/L Carbon Dioxide (22-30) mmol/L Anion Gap mmol/L BUN (9-20) mg/dL Creatinine (0.8-1.5) mg/dL Estimated GFR ml/min BUN/Creatinine Ratio % Glucose (75-100) mg/dL Lactic Acid 0.90 (0.7-2.0) mmol/L Calcium (8.4-10.2) mg/dL Total Bilirubin (0.1-1.2) mg/dL AST (5-40) units/L ALT (7-56) units/L Alkaline Phosphatase (35-129) units/L Total Creatine Kinase (55-170) units/L Total Protein (6.3-8.2) g/dL Albumin (3.9-5) g/dL Albumin/Globulin Ratio % Urine Color Yellow (Yellow) Urine Turbidity Clear (Clear) Urine pH 6.0 (5.0-7.0) Ur Specific Casey 1.020 (1.003-1.030) Urine Protein <15 mg/dl (Negative) mg/dL Urine Glucose (UA) Neg (Negative) mg/dL Urine Ketones Tr (Negative) mg/dL Urine Blood Neg (Negative) Urine Nitrite Neg (Negative) Urine Bilirubin Neg (Negative) Urine Urobilinogen 4.0 (<2.0) mg/dL Ur Leukocyte Esterase Neg (Negative) Urine WBC (Auto) < 1.0 (0.0-6.0) /HPF Urine RBC (Auto) 3.0 (0.0-6.0) /HPF Urine Mucus Few /HPF 12/23/17 12/23/17 12/23/17 Range/Units 00:30 02:31 02:31 WBC (4.5-11.0) K/mm3 RBC (3.65-5.03) M/mm3 Hgb (11.8-15.2) gm/dl Hct (35.5-45.6) % MCV (84-94) fl MCH (28-32) pg MCHC (32-34) % RDW (13.2-15.2) % Plt Count (140-440) K/mm3 Lymph % (Auto) (13.4-35.0) % Richardson % (Auto) (0.0-7.3) % Eos % (Auto) (0.0-4.3) % Baso % (Auto) (0.0-1.8) % Lymph # (1.2-5.4) K/mm3 Richardson # (0.0-0.8) K/mm3 Eos # (0.0-0.4) K/mm3 Baso # (0.0-0.1) K/mm3 Seg Neutrophils % (40.0-70.0) % Seg Neutrophils # (1.8-7.7) K/mm3 PT (12.2-14.9) Sec. INR (0.87-1.13) VBG pH (7.320-7.420) Sodium (137-145) mmol/L Potassium (3.6-5.0) mmol/L Chloride (98-107) mmol/L Carbon Dioxide (22-30) mmol/L Anion Gap mmol/L BUN (9-20) mg/dL Creatinine (0.8-1.5) mg/dL Estimated GFR ml/min BUN/Creatinine Ratio % Glucose (75-100) mg/dL Lactic Acid 1.30 1.00 (0.7-2.0) mmol/L Calcium (8.4-10.2) mg/dL Total Bilirubin (0.1-1.2) mg/dL AST (5-40) units/L ALT (7-56) units/L Alkaline Phosphatase (35-129) units/L Total Creatine Kinase 331 H (55-170) units/L Total Protein (6.3-8.2) g/dL Albumin (3.9-5) g/dL Albumin/Globulin Ratio % Urine Color (Yellow) Urine Turbidity (Clear) Urine pH (5.0-7.0) Ur Specific Casey (1.003-1.030) Urine Protein (Negative) mg/dL Urine Glucose (UA) (Negative) mg/dL Urine Ketones (Negative) mg/dL Urine Blood (Negative) Urine Nitrite (Negative) Urine Bilirubin (Negative) Urine Urobilinogen (<2.0) mg/dL Ur Leukocyte Esterase (Negative) Urine WBC (Auto) (0.0-6.0) /HPF Urine RBC (Auto) (0.0-6.0) /HPF Urine Mucus /HPF - Radiology Data Radiology results: report reviewed, image reviewed X-ray of the chest is negative for acute disease. X-ray the hand, x-ray of the forearm demonstrate no fracture, dislocation, however soft tissue swelling is noted. No gas is noted. - Medical Decision Making Differential diagnosis, including but not limited to: Cellulitis, myositis, sepsis, tenosynovitis Assessment and plan: 37-year-old male with left hand pain, swelling, redness. Initially ruled in for sepsis criteria with a temperature of 101.4, and a heart rate of 108. Please note that the patient was not brought back to the main side immediately, and therefore there was a delay in antibiotic administration. However, as soon as the patient was brought back, I saw him immediately, and began managing him according to the sepsis pathway. Currently, this hospital does not have orthopedics or hand surgery available for consultation or evaluation. The patient has an emergency medical condition that require subspecialty services not available at this facility. He will therefore be transferred. I contacted the [facility], and discussed the case with the hand specialist, Dr. Johansen, who agreed to see the patient in consultation, and then discussed the case with the Hospital physician, Dr. Dickens, who accepted the patient as a transfer. Critical care attestation.: If time is entered above; I have spent that time in minutes in the direct care of this critically ill patient, excluding procedure time. ED Disposition Clinical Impression: Cellulitis of left forearm, Abscess of left forearm, SIRS (systemic inflammatory response syndrome) Disposition[facility] IP Is pt being admited?: No Does the pt Need Aspirin: No Condition: Stable Referrals: PRIMARY CARE, [Primary Care Provider] - 3-5 Days
[2017-12-23] MEDS ORDERED: VANCOMYCIN 1,500 MG in NACL 0.9% 500 ML 500 ML IV ONE (02:30)
[2017-12-23] MEDS ORDERED: ZOSYN/NS 4.5GM/100ML 4.5 GM/100 ML VIAL IV SCH (03:00)
[2017-12-23 03:02] VITALS: BP 132/68
--- NOTE | 2017-12-23 03:14 | XRay Report ---
FINAL REPORT EXAM: XR HAND 3+V LT HISTORY: left hand pain swelling TECHNIQUE: Three views of the left hand were obtained. FINDINGS: There is diffuse soft tissue swelling along the dorsal aspect of the metacarpals. There is no evidence of fracture or osteomyelitis. The wrist joint is not show any acute changes. IMPRESSION: Diffuse soft swelling along the dorsal aspect of the metacarpals. No evidence of fracture or osteomyelitis.
--- NOTE | 2017-12-23 03:16 | XRay Report ---
FINAL REPORT EXAM: XR FOREARM LT HISTORY: left FOREARM pain swelling TECHNIQUE: AP and lateral views of the left forearm were obtained. FINDINGS: There is no evidence of fracture or dislocation. The elbow and wrist joints do not show any acute changes. There is soft swelling overlying the dorsal aspect of the wrist and hand. IMPRESSION: Soft tissue swelling overlying the dorsal aspect of the wrist and hand. Otherwise unremarkable exam
== END 2017-12-23 04:15 | disposition short-term general hospital (02) ==
LOC: ED 21:03
DX: L03.114 Cellulitis of left upper limb (principal); R65.10 Systemic inflammatory response syndrome (SIRS) of non-infectious origin without acute organ dysfunction; L02.414 Cutaneous abscess of left upper limb; E11.9 Type 2 diabetes mellitus without complications; F17.200 Nicotine dependence, unspecified, uncomplicated; F12.10 Cannabis abuse, uncomplicated; Z79.899 Other long term (current) drug therapy; Z88.1 Allergy status to other antibiotic agents; Z79.4 Long term (current) use of insulin
CPT/HCPCS: 36415; 71045; 73090; 73130; 80053; 81001; 82140; 82550; 82805; 82962; 85025; 85610; 87040; 87086; 93005; 93010; 96365; 96367; 96375; 99285; J2543; J3010; J3370; J7030; J7040